=== PATIENT | female | born 1945 | race Caucasian/White ===

== ENCOUNTER → 2018-02-07 | Outpatient (CLI) | payer MEDICARE ==
--- NOTE | 2018-02-07 11:07 | KCIC ---
Left breast ultrasound: Reason for examination: Small nodular densities on mammographic exam. Comparison is made to mammographic exam dated 01/18/2018. Left whole breast ultrasound including evaluation of all 4 quadrants and the retroareolar and axillary regions of the left breast was performed. There are some minimal fibrocystic type changes in the 6:00 and 9:00 positions. There are no discrete cystic or solid nodules. No abnormal appearing lymph nodes are seen in the axilla. IMPRESSION: No significant abnormality seen in the left breast. Recommend routine mammographic follow-up. BI-RADS Category 2: Benign. "Our facility is accredited by the [employer] Mammography [employer]." This patient's information has been entered into a reminder system for the patient to be notified with the results of her examination and a target date for the next mammogram. Electronically signed by: Ade Figueroa MD (02/07/2018 11:04 AM) [id number]
== END | disposition home or self-care (01) ==
LOC: KCIC US 09:44
PROVIDERS: ATTEND Internal Medicine
DX: R92.8 Other abnormal and inconclusive findings on diagnostic imaging of breast (principal)
CPT/HCPCS: 76641

== ENCOUNTER → 2019-03-17 | Outpatient (CLI) | payer MEDICARE ==
--- NOTE | 2019-03-17 14:23 | KCIC ---
Bilateral digital screening mammograms with 3-D tomosynthesis: Reason for examination: Routine screening. Comparison is made to previous studies dated 01/18/2018 and 06/13/2016. Bilateral mammograms in CC and oblique projections were obtained with 2-D imaging and 3-D tomosynthesis imaging on a Siemens Inspiration unit and reviewed on the workstation. Interpretation was made with the benefit of CAD. The skin and nipples show no abnormalities. No abnormal axillary lymph nodes are seen. The breast parenchyma is heterogeneously dense. (Breast density: Category C.) There are small foci of asymmetry which are stable. There are no dominant masses, suspicious calcifications or architectural distortion. Impression: No evidence of malignancy. Recommend routine screening. Your patient's mammogram demonstrates that she has dense breast tissue (breast density category C or D), which could hide abnormalities, and if she has other risk factors for breast cancer that have been identified, she might benefit from supplemental screening tests that may be suggested by you as her ordering physician. Dense breast tissue, in and of itself, is a relatively common condition. Therefore, this information is not provided to cause undue concern, but rather to raise your awareness and to promote discussion with your patient regarding the presence of other risk factors, in addition to dense breast tissue. Your patient's mammography results will be sent to her. BI-RAD Category 2: Benign. "Our facility is accredited by the [employer] Mammography [employer]." This patient's information has been entered into a reminder system for the patient to be notified with the results of her examination and a target date for the next mammogram. Electronically signed by: Ade Figueroa MD (03/17/2019 2:20 PM) [facility]
== END | disposition home or self-care (01) ==
LOC: KCIC MAMMO 10:01
PROVIDERS: ATTEND Internal Medicine
DX: Z12.31 Encounter for screening mammogram for malignant neoplasm of breast (principal)
CPT/HCPCS: 77063; 77067

== ENCOUNTER → 2020-03-22 | Outpatient (CLI) | payer MEDICARE ==
--- NOTE | 2020-03-22 12:16 | KCIC ---
Bilateral digital screening mammograms with 3-D tomosynthesis: Reason for examination: Routine screening. Comparison is made to previous studies dated back to 06/11/2015. Bilateral mammograms in CC and oblique projections were obtained with 2-D imaging and 3-D tomosynthesis imaging on a Siemens Inspiration unit and reviewed on the workstation. Interpretation was made with the benefit of CAD. The skin shows multiple moles bilaterally. The nipples show no abnormalities. No abnormal axillary lymph nodes are seen. The breast parenchyma is heterogeneously dense. (Breast density: Category C.) There are no dominant masses, suspicious calcifications or architectural distortion. Impression: No evidence of malignancy. Recommend routine screening. Your patient's mammogram demonstrates that she has dense breast tissue (breast density category C or D), which could hide abnormalities, and if she has other risk factors for breast cancer that have been identified, she might benefit from supplemental screening tests that may be suggested by you as her ordering physician. Dense breast tissue, in and of itself, is a relatively common condition. Therefore, this information is not provided to cause undue concern, but rather to raise your awareness and to promote discussion with your patient regarding the presence of other risk factors, in addition to dense breast tissue. Your patient's mammography results will be sent to her. BI-RAD Category 2: Benign. "Our facility is accredited by the [employer] Mammography [employer]." This patient's information has been entered into a reminder system for the patient to be notified with the results of her examination and a target date for the next mammogram. Electronically signed by: Ade Figueroa MD (03/22/2020 12:13 PM) [email or web address]
--- NOTE | 2020-03-22 16:09 | KCIC ---
BONE DENSITY AXIAL History: Reason: POSTMENOPAUSAL / Spl. Instructions: / History: TECHNIQUE: Dual energy x-ray absorptiometry of the lumbar spine and both hips was performed. T-score of average bone mineral density based was calculated based on standard deviations above or below the expected young adult normal value. Diagnostic definitions were established by the World Health Organization. FINDINGS: The average bone mineral density associated with L1-L4 is 1.398 g/cm^2, corresponding with a T-score of 3.2. Artificially elevated due to degenerative changes. The average total bone mineral density associated with left hip is 0.934 g/cm^2, corresponding with a T-score of -0.1. No comparison examinations are available. Refer to the worksheets for full detail. IMPRESSION: 1. Normal. Average bone mineral density yields a T-score of -1.0 or greater. Fracture risk is low. Electronically signed by: Dominick Burnham DO (03/22/2020 4:06 PM) [id number]
== END ==
LOC: KCIC DEXA 09:31
PROVIDERS: ATTEND Internal Medicine
DX: Z12.31 Encounter for screening mammogram for malignant neoplasm of breast (principal); Z13.820 Encounter for screening for osteoporosis; N95.9 Unspecified menopausal and perimenopausal disorder
CPT/HCPCS: 77063; 77067; 77080

== ENCOUNTER → 2021-03-23 | Outpatient (CLI) | payer MEDICARE ==
--- NOTE | 2021-03-23 09:52 | KCIC ---
Bilateral digital screening mammograms with 3-D tomosynthesis: Reason for examination: Routine screening. Comparison is made to previous studies dated back to 06/05/2014. Bilateral mammograms in CC and oblique projections were obtained with 2-D imaging and 3-D tomosynthes is imaging on a Siemens Inspiration unit and reviewed on the workstation. Interpretation was made wit h the benefit of CAD. The skin shows presence of multiple moles. The nipples show no acute abnormalities. No abnormal axill yo lymph nodes are seen. The breast parenchyma shows scattered fatty and fibroglandular density. (Br east density: Category B.) There are no dominant masses, suspicious calcifications or architectural d istortion. Impression: No evidence of malignancy. Recommend routine screening. BI-RAD Category 2: Benign. "Our facility is accredited by the [employer]amm[employer]." This patient's information has been entered into a reminder system for the patient to be notified wit h the results of her examination and a target date for the next mammogram. Electronically signed by: Ade Figueroa MD (03/23/2021 9:49 AM) [email or web address]
== END ==
LOC: KCIC MAMMO 08:06
PROVIDERS: ATTEND Internal Medicine
DX: Z12.31 Encounter for screening mammogram for malignant neoplasm of breast (principal)
CPT/HCPCS: 77063; 77067